=== PATIENT | female | born 1995 | race African-American/Black ===

== ENCOUNTER 2016-08-29 09:21 | Outpatient (CLI) | payer OTHER, SELFPAY ==
[~2016-08-29] VITALS: Ht 170.2 cm; Wt 87.0 kg
[~2016-08-29 09:21] MED LIST: PRENTAB13 PO
[2016-08-29 09:42] VITALS: BP 135/63
[2016-08-29] MEDS ORDERED: RANI1TAB6 PO (10:14)
== END 2016-08-29 10:17 | disposition home or self-care (01) ==
LOC: M LDO 09:21
PROVIDERS: ATTEND Advanced Practice Midwife
DX: O62.0 Primary inadequate contractions (principal); Z3A.35 35 weeks gestation of pregnancy; R10.2 Pelvic and perineal pain